=== PATIENT | female | born 1970 | race Two or more races ===

== ENCOUNTER 2019-05-08 17:22 | Inpatient (IN) | payer OTHER ==
[~2019-05-08] VITALS: Ht 170.2 cm; Wt 79.0 kg
[2019-05-08] MEDS ORDERED: HEPARIN 25,000 UNITS/500ML PMX 500 ML ONE (17:47)
--- NOTE | 2019-05-08 17:54 | NUR ---
BIB EMS TRANSFER FROM [facility] FOR BILATERAL PE. PT HAS HAD SOB, CP FOR 10 DAYS. RECENTLY MOVED FROM [place] TO [facility]. PT STATES SHE IS UNABLE TO AMBULATED FAR W OUT SOB. FAMILY HX OF MOM DYING FROM PE AT AGE 42. PT ON [employer]ICE, PULSE OX, 2 L O2. VS STABLE. PT NOT IN ANY DISTRESS, A&OX4. AT BEDSIDE DISCUSSING POC.
[2019-05-08] MEDS ORDERED: LISI-170 PO (18:15)
[2019-05-08] MEDS ORDERED: CITA40TA12 PO (18:15)
--- NOTE | 2019-05-08 18:30 | NUR ---
RN EDUCATED PT ABOUT LAB VALUES AND POC THAT LAB WILL BE DRAWN EVERY SIX HOURS TO APPROPIATLY DOSE HEP GTT. PT UNDERSTANDS. NO NEEDS AT THIS TIME
[2019-05-08] MEDS ORDERED: POLYETHYLENE GLYCOL 17 GM PACKET PO PRN (19:00)
[2019-05-08] MEDS ORDERED: BISACODYL 10 MG SUPP PR PRN (19:00)
[2019-05-08] MEDS ORDERED: HEPARIN 5,000 UNITS/ML, 1ML ONE (19:22)
[2019-05-08] MEDS ORDERED: HEPARIN 5,000 UNITS/ML, 1ML IV ONE (19:30)
--- NOTE | 2019-05-08 19:30 | NUR ---
HEP GTT STARTED @800U/HR. VERIFIED W PHARMACY
[2019-05-08 19:32] LABS: TROPONIN I 0.068 ng/mL (0.000-0.045)
--- NOTE | 2019-05-08 19:42 | NUR ---
TASK RN: VERIFIED HEPARIN DRIP AND BOLUS WITH PRIMARY RN.
[2019-05-08] MEDS ORDERED: GUAIFENESIN/DM 200-20MG, 10ML UDC PO PRN (20:00)
[2019-05-08] MEDS ORDERED: ONDANSETRON ODT 4 MG PO PRN (20:00)
[2019-05-08] MEDS: SODIUM CHLORIDE FLUSH 10ML SYR IVF SCH (21:00)
[2019-05-08 21:05] VITALS: BP 112/78
[2019-05-09 01:23] LABS: TROPONIN I 0.061 ng/mL (0.000-0.045)
[2019-05-09] MEDS: HEPARIN 5,000 UNITS/ML, 1ML IV PRN ×4 (02:52→22:49)
[2019-05-09 03:36] VITALS: BP 119/81
[2019-05-09 05:21] LABS: CHLORIDE 105 mmol/L (98-107)
[2019-05-09 05:22] LABS: BASOPHILS # (AUTO) 0.03 x10^3/uL (0-0.1); BASOPHILS % (AUTO) 0 % (0-1); EOSINOPHILS # (AUTO) 0.13 x10^3/uL (0-0.4); EOSINOPHILS % (AUTO) 2 % (1-7); LYMPHOCYTES # (AUTO) 1.87 x10^3/uL (1-3.4); LYMPHOCYTES % (AUTO) 26 % (22-44); MD NO; MEAN CORPUSCULAR HEMOGLOBIN 31.6 pg (27.0-34.8); MEAN CORPUSCULAR HGB CONC 32.7 g/dL (32.4-35.8); MEAN CORPUSCULAR VOLUME 96.7 fL (80-100); MEAN PLATELET VOLUME 8.9 fL (7.4-10.4); MONOCYTES # (AUTO) 0.56 x10^3/uL (0.2-0.8); MONOCYTES % (AUTO) 8 % (2-9); NEUTROPHILS # (AUTO) 4.53 x10^3/uL (1.8-6.8); NEUTROPHILS % (AUTO) 64 % (42-75); PLATELET COUNT 159 x10^3/uL (130-400); RED BLOOD COUNT 4.27 x10^6/uL (3.82-5.3); RED CELL DISTRIBUTION WIDTH 13.2 % (9.6-15.2)
[2019-05-09 05:28] LABS: ALANINE AMINOTRANSFERASE 40 U/L (12-78); ALBUMIN 3.1 g/dL (3.4-5.0); ALKALINE PHOSPHATASE 94 U/L (45-117); ANION GAP 10 mmol/L (5-15); BILIRUBIN,TOTAL 0.7 mg/dL (0.2-1.0); CALCIUM 8.3 mg/dL (8.5-10.1); CREATININE 0.64 mg/dL (0.55-1.02); TOTAL PROTEIN 6.8 g/dL (6.4-8.2)
[2019-05-09 08:07] VITALS: BP 114/71
[2019-05-09 08:27] LABS: TROPONIN I 0.041 ng/mL (0.000-0.045)
[2019-05-09] MEDS: SODIUM CHLORIDE FLUSH 10ML SYR IVF SCH ×2 (09:00→20:10)
[2019-05-09] MEDS: SENNA/DOCUSATE TABLET PO SCH (09:00)
[2019-05-09] MEDS ORDERED: LISINOPRIL 20 MG TABLET PO SCH (09:00)
[2019-05-09] MEDS ORDERED: CITALOPRAM 20 MG TABLET PO SCH (09:00)
[2019-05-09] MEDS: ACETAMINOPHEN 325 MG TABLET PO PRN ×2 (09:51→14:28)
[2019-05-09] MEDS ORDERED: METHOCARBAMOL 500 MG TABLET ONE (10:06)
[2019-05-09] MEDS ORDERED: MORPHINE SULFATE 4 MG/ML, 1ML ONE (10:07)
[2019-05-09] MEDS: METHOCARBAMOL 500 MG TABLET PO PRN ×3 (10:10→22:25)
[2019-05-09] MEDS ORDERED: MORPHINE SULFATE 4 MG/ML, 1ML IVPush SCH (10:30)
[2019-05-09 14:32] VITALS: BP 120/85
[2019-05-09] MEDS: HYDROcodone/APAP 5/325 TABLET PO PRN ×2 (18:32→22:25)
[2019-05-09 19:39] VITALS: BP 119/81
[2019-05-09] MEDS: CITALOPRAM 20 MG TABLET PO SCH (20:10)
[2019-05-09] MEDS: HEPARIN 25,000 UNITS/500ML PMX 500 ML IV PRN (22:22)
[2019-05-10 01:22] VITALS: BP 114/81
[2019-05-10 05:33] LABS: BASOPHILS # (AUTO) 0.02 x10^3/uL (0-0.1); BASOPHILS % (AUTO) 0 % (0-1); EOSINOPHILS # (AUTO) 0.13 x10^3/uL (0-0.4); EOSINOPHILS % (AUTO) 2 % (1-7); LYMPHOCYTES # (AUTO) 1.76 x10^3/uL (1-3.4); LYMPHOCYTES % (AUTO) 29 % (22-44); MD NO; MEAN CORPUSCULAR HGB CONC 32.9 g/dL (32.4-35.8); MEAN PLATELET VOLUME 8.9 fL (7.4-10.4); MONOCYTES # (AUTO) 0.54 x10^3/uL (0.2-0.8); MONOCYTES % (AUTO) 9 % (2-9); NEUTROPHILS # (AUTO) 3.58 x10^3/uL (1.8-6.8); NEUTROPHILS % (AUTO) 59 % (42-75); PLATELET COUNT 181 x10^3/uL (130-400); RED BLOOD COUNT 4.08 x10^6/uL (3.82-5.3); RED CELL DISTRIBUTION WIDTH 13.3 % (9.6-15.2)
[2019-05-10 05:44] LABS: CALCIUM 8.6 mg/dL (8.5-10.1); CHLORIDE 105 mmol/L (98-107)
[2019-05-10 05:50] LABS: ALANINE AMINOTRANSFERASE 64 U/L (12-78); ALBUMIN 3.1 g/dL (3.4-5.0); ALKALINE PHOSPHATASE 97 U/L (45-117); ANION GAP 7 mmol/L (5-15); BILIRUBIN,TOTAL 0.5 mg/dL (0.2-1.0); CREATININE 0.76 mg/dL (0.55-1.02); TOTAL PROTEIN 6.9 g/dL (6.4-8.2)
[2019-05-10] MEDS: HEPARIN 5,000 UNITS/ML, 1ML IV PRN ×2 (05:53→17:55)
[2019-05-10 07:06] VITALS: BP 113/77
[2019-05-10] MEDS: SENNA/DOCUSATE TABLET PO SCH (09:00)
[2019-05-10] MEDS: SODIUM CHLORIDE FLUSH 10ML SYR IVF SCH ×2 (10:31→21:02)
[2019-05-10 14:11] VITALS: BP 119/85
[2019-05-10] MEDS: METHOCARBAMOL 500 MG TABLET PO PRN (16:48)
[2019-05-10] MEDS: HEPARIN 25,000 UNITS/500ML PMX 500 ML IV PRN (16:49)
[2019-05-10 19:25] VITALS: BP 121/84
[2019-05-10] MEDS: CITALOPRAM 20 MG TABLET PO SCH (21:00)
[2019-05-10] MEDS: HYDROcodone/APAP 5/325 TABLET PO PRN (21:03)
[2019-05-11 00:31] VITALS: BP 103/66
[2019-05-11 06:45] VITALS: BP 109/75
[2019-05-11 07:23] LABS: BASOPHILS # (AUTO) 0.02 x10^3/uL (0-0.1); BASOPHILS % (AUTO) 0 % (0-1); EOSINOPHILS # (AUTO) 0.06 x10^3/uL (0-0.4); EOSINOPHILS % (AUTO) 1 % (1-7); LYMPHOCYTES % (AUTO) 26 % (22-44); MD NO; MEAN CORPUSCULAR HEMOGLOBIN 31.8 pg (27.0-34.8); MEAN CORPUSCULAR HGB CONC 33.8 g/dL (32.4-35.8); MEAN CORPUSCULAR VOLUME 94.3 fL (80-100); MEAN PLATELET VOLUME 8.2 fL (7.4-10.4); MONOCYTES # (AUTO) 0.41 x10^3/uL (0.2-0.8); MONOCYTES % (AUTO) 8 % (2-9); NEUTROPHILS # (AUTO) 3.15 x10^3/uL (1.8-6.8); NEUTROPHILS % (AUTO) 64 % (42-75); PLATELET COUNT 213 x10^3/uL (130-400); RED BLOOD COUNT 4.07 x10^6/uL (3.82-5.3)
[2019-05-11 07:39] LABS: ANION GAP 7 mmol/L (5-15); CHLORIDE 104 mmol/L (98-107); CREATININE 0.77 mg/dL (0.55-1.02)
[2019-05-11] MEDS: SODIUM CHLORIDE FLUSH 10ML SYR IVF SCH ×2 (09:17→20:46)
[2019-05-11] MEDS: SENNA/DOCUSATE TABLET PO SCH (09:18)
[2019-05-11] MEDS: HEPARIN 25,000 UNITS/500ML PMX 500 ML IV PRN (10:58)
[2019-05-11 13:11] VITALS: BP 121/78
[2019-05-11] MEDS: HYDROcodone/APAP 5/325 TABLET PO PRN (15:39)
[2019-05-11 18:36] VITALS: BP 106/72
[2019-05-11] MEDS: METHOCARBAMOL 500 MG TABLET PO PRN (20:46)
[2019-05-11] MEDS: CITALOPRAM 20 MG TABLET PO SCH ×2 (20:46→20:49)
[2019-05-12 00:36] VITALS: BP 110/77
[2019-05-12] MEDS: HEPARIN 25,000 UNITS/500ML PMX 500 ML IV PRN ×2 (03:14→18:41)
[2019-05-12] MEDS: HYDROcodone/APAP 5/325 TABLET PO PRN ×2 (03:29→20:33)
[2019-05-12 05:32] LABS: BASOPHILS # (AUTO) 0.02 x10^3/uL (0-0.1); BASOPHILS % (AUTO) 0 % (0-1); EOSINOPHILS # (AUTO) 0.15 x10^3/uL (0-0.4); EOSINOPHILS % (AUTO) 3 % (1-7); LYMPHOCYTES # (AUTO) 1.28 x10^3/uL (1-3.4); LYMPHOCYTES % (AUTO) 25 % (22-44); MD NO; MEAN CORPUSCULAR HGB CONC 33.2 g/dL (32.4-35.8); MEAN CORPUSCULAR VOLUME 96.4 fL (80-100); MEAN PLATELET VOLUME 8.7 fL (7.4-10.4); MONOCYTES # (AUTO) 0.41 x10^3/uL (0.2-0.8); MONOCYTES % (AUTO) 8 % (2-9); NEUTROPHILS # (AUTO) 3.32 x10^3/uL (1.8-6.8); NEUTROPHILS % (AUTO) 64 % (42-75); PLATELET COUNT 241 x10^3/uL (130-400); RED BLOOD COUNT 3.95 x10^6/uL (3.82-5.3)
[2019-05-12] MEDS: HEPARIN 5,000 UNITS/ML, 1ML IV PRN (06:38)
[2019-05-12 09:21] VITALS: BP 115/81
[2019-05-12] MEDS: SODIUM CHLORIDE FLUSH 10ML SYR IVF SCH ×2 (09:23→20:26)
[2019-05-12] MEDS: SENNA/DOCUSATE TABLET PO SCH ×2 (11:00→13:46)
[2019-05-12 12:37] LABS: INTERNATIONAL NORMALIZED RATIO 1.02 (0.93-1.1); PROTHROMBIN TIME 10.7 Seconds (9.6-11.5)
[2019-05-12 15:55] VITALS: BP 126/89
[2019-05-12] MEDS ORDERED: WARFARIN 7.5 MG TABLET PO-COUM ONE (18:00)
[2019-05-12 18:23] VITALS: BP 130/88
[2019-05-12] MEDS: CITALOPRAM 20 MG TABLET PO SCH (20:26)
[2019-05-12 21:17] VITALS: BP 164/101
[2019-05-13 00:29] VITALS: BP 109/74
[2019-05-13 06:19] LABS: INTERNATIONAL NORMALIZED RATIO 1.04 (0.93-1.1); PROTHROMBIN TIME 10.9 Seconds (9.6-11.5)
[2019-05-13 06:45] VITALS: BP 113/80
[2019-05-13] MEDS: SENNA/DOCUSATE TABLET PO SCH (09:00)
[2019-05-13] MEDS: SODIUM CHLORIDE FLUSH 10ML SYR IVF SCH ×2 (10:04→20:42)
[2019-05-13] MEDS: HEPARIN 25,000 UNITS/500ML PMX 500 ML IV PRN (11:59)
[2019-05-13] MEDS: HYDROcodone/APAP 5/325 TABLET PO PRN ×2 (12:04→20:41)
[2019-05-13 12:42] VITALS: BP 127/86
[2019-05-13] MEDS ORDERED: WARFARIN 7.5 MG TABLET PO-COUM ONE (18:00)
[2019-05-13] MEDS: CITALOPRAM 20 MG TABLET PO SCH ×2 (20:41→20:46)
[2019-05-13 20:58] VITALS: BP 126/90
[2019-05-14 02:12] VITALS: BP 110/75
[2019-05-14] MEDS: HEPARIN 25,000 UNITS/500ML PMX 500 ML IV PRN ×2 (04:46→19:46)
[2019-05-14 05:16] LABS: BASOPHILS # (AUTO) 0.02 x10^3/uL (0-0.1); BASOPHILS % (AUTO) 0 % (0-1); EOSINOPHILS # (AUTO) 0.13 x10^3/uL (0-0.4); EOSINOPHILS % (AUTO) 3 % (1-7); LYMPHOCYTES # (AUTO) 1.82 x10^3/uL (1-3.4); LYMPHOCYTES % (AUTO) 41 % (22-44); MD NO; MEAN CORPUSCULAR HEMOGLOBIN 31.9 pg (27.0-34.8); MEAN CORPUSCULAR VOLUME 96.5 fL (80-100); MEAN PLATELET VOLUME 8.2 fL (7.4-10.4); MONOCYTES # (AUTO) 0.34 x10^3/uL (0.2-0.8); MONOCYTES % (AUTO) 8 % (2-9); NEUTROPHILS # (AUTO) 2.11 x10^3/uL (1.8-6.8); NEUTROPHILS % (AUTO) 48 % (42-75); PLATELET COUNT 248 x10^3/uL (130-400); RED BLOOD COUNT 3.92 x10^6/uL (3.82-5.3); RED CELL DISTRIBUTION WIDTH 12.6 % (9.6-15.2)
[2019-05-14 05:20] LABS: INTERNATIONAL NORMALIZED RATIO 1.31 (0.93-1.1); PROTHROMBIN TIME 13.6 Seconds (9.6-11.5)
[2019-05-14 05:25] LABS: ANION GAP 6 mmol/L (5-15); CALCIUM 8.8 mg/dL (8.5-10.1); CHLORIDE 106 mmol/L (98-107)
[2019-05-14 05:27] LABS: CREATININE 0.76 mg/dL (0.55-1.02)
[2019-05-14 06:52] VITALS: BP 93/65
[2019-05-14] MEDS: SODIUM CHLORIDE FLUSH 10ML SYR IVF SCH ×2 (09:00→19:48)
[2019-05-14] MEDS: SENNA/DOCUSATE TABLET PO SCH (09:00)
[2019-05-14] MEDS: WARFARIN MODERAT DOSE PROTOCOL XX SCH (12:00)
[2019-05-14 14:59] VITALS: BP 105/72
[2019-05-14] MEDS ORDERED: WARFARIN 7.5 MG TABLET PO-COUM SCH (18:00)
[2019-05-14] MEDS: CITALOPRAM 20 MG TABLET PO SCH (19:47)
[2019-05-14 19:49] VITALS: BP 115/81
[2019-05-14] MEDS: HYDROcodone/APAP 5/325 TABLET PO PRN (20:10)
[2019-05-15 00:52] VITALS: BP 118/84
[2019-05-15 05:24] LABS: INTERNATIONAL NORMALIZED RATIO 1.6 (0.93-1.1); PROTHROMBIN TIME 16.5 Seconds (9.6-11.5)
[2019-05-15 07:34] VITALS: BP 116/79
[2019-05-15] MEDS: SENNA/DOCUSATE TABLET PO SCH (08:24)
[2019-05-15] MEDS: SODIUM CHLORIDE FLUSH 10ML SYR IVF SCH ×2 (08:24→20:01)
[2019-05-15] MEDS: WARFARIN MODERAT DOSE PROTOCOL XX SCH (12:00)
[2019-05-15 12:33] VITALS: BP 109/62
[2019-05-15] MEDS: HEPARIN 25,000 UNITS/500ML PMX 500 ML IV PRN (13:06)
[2019-05-15] MEDS: HYDROcodone/APAP 5/325 TABLET PO PRN (14:43)
[2019-05-15] MEDS ORDERED: WARFARIN 7.5 MG TABLET PO-COUM SCH (18:00)
[2019-05-15] MEDS: CITALOPRAM 20 MG TABLET PO SCH (20:00)
[2019-05-15 20:34] VITALS: BP 103/71
[2019-05-16 00:38] VITALS: BP 114/81
[2019-05-16] MEDS: HEPARIN 25,000 UNITS/500ML PMX 500 ML IV PRN ×2 (05:06→19:50)
[2019-05-16 05:32] LABS: INTERNATIONAL NORMALIZED RATIO 1.82 (0.93-1.1); PROTHROMBIN TIME 18.7 Seconds (9.6-11.5)
[2019-05-16 06:48] VITALS: BP 110/75
[2019-05-16] MEDS: WARFARIN MODERAT DOSE PROTOCOL XX SCH (07:27)
[2019-05-16] MEDS: SODIUM CHLORIDE FLUSH 10ML SYR IVF SCH ×2 (07:30→19:39)
[2019-05-16] MEDS: SENNA/DOCUSATE TABLET PO SCH (09:00)
[2019-05-16] MEDS: HYDROcodone/APAP 5/325 TABLET PO PRN (13:17)
[2019-05-16 13:20] VITALS: BP 123/86
[2019-05-16] MEDS ORDERED: WARFARIN 7.5 MG TABLET PO-COUM ONE (15:44)
[2019-05-16] MEDS: METHOCARBAMOL 500 MG TABLET PO PRN (15:46)
[2019-05-16] MEDS ORDERED: WARFARIN 7.5 MG TABLET PO-COUM SCH (18:00)
[2019-05-16] MEDS: CITALOPRAM 20 MG TABLET PO SCH (19:39)
[2019-05-16 19:40] VITALS: BP 122/85
[2019-05-16] MEDS: TEMAZEPAM 15 MG CAPSULE PO PRN (23:48)
[2019-05-17 02:16] VITALS: BP 127/87
[2019-05-17 05:32] LABS: INTERNATIONAL NORMALIZED RATIO 2.1 (0.93-1.1); PROTHROMBIN TIME 21.4 Seconds (9.6-11.5)
[2019-05-17 05:37] LABS: ANION GAP 6 mmol/L (5-15); CALCIUM 9.3 mg/dL (8.5-10.1); CHLORIDE 105 mmol/L (98-107)
[2019-05-17 05:38] LABS: CREATININE 0.98 mg/dL (0.55-1.02)
[2019-05-17 06:21] LABS: BASOPHILS # (AUTO) 0.02 x10^3/uL (0-0.1); BASOPHILS % (AUTO) 0 % (0-1); EOSINOPHILS # (AUTO) 0.12 x10^3/uL (0-0.4); EOSINOPHILS % (AUTO) 3 % (1-7); LYMPHOCYTES # (AUTO) 1.79 x10^3/uL (1-3.4); LYMPHOCYTES % (AUTO) 36 % (22-44); MD NO; MEAN CORPUSCULAR HEMOGLOBIN 31.7 pg (27.0-34.8); MEAN CORPUSCULAR HGB CONC 33.6 g/dL (32.4-35.8); MEAN CORPUSCULAR VOLUME 94.2 fL (80-100); MEAN PLATELET VOLUME 7.9 fL (7.4-10.4); MONOCYTES # (AUTO) 0.38 x10^3/uL (0.2-0.8); MONOCYTES % (AUTO) 8 % (2-9); NEUTROPHILS # (AUTO) 2.68 x10^3/uL (1.8-6.8); NEUTROPHILS % (AUTO) 54 % (42-75); PLATELET COUNT 224 x10^3/uL (130-400); RED BLOOD COUNT 4.32 x10^6/uL (3.82-5.3); RED CELL DISTRIBUTION WIDTH 13.1 % (9.6-15.2)
[2019-05-17 07:10] VITALS: BP 113/76
[2019-05-17] MEDS: SODIUM CHLORIDE FLUSH 10ML SYR IVF SCH ×2 (08:40→20:16)
[2019-05-17] MEDS: SENNA/DOCUSATE TABLET PO SCH (09:20)
[2019-05-17] MEDS: WARFARIN MODERAT DOSE PROTOCOL XX SCH (12:09)
[2019-05-17] MEDS: HEPARIN 25,000 UNITS/500ML PMX 500 ML IV PRN (14:37)
[2019-05-17 15:59] VITALS: BP 112/80
[2019-05-17] MEDS ORDERED: WARFARIN 3 MG TABLET PO-COUM SCH (18:00)
[2019-05-17 18:51] VITALS: BP 129/88
[2019-05-17] MEDS: CITALOPRAM 20 MG TABLET PO SCH (20:16)
[2019-05-17] MEDS: TEMAZEPAM 15 MG CAPSULE PO PRN (22:29)
[2019-05-18 02:37] VITALS: BP 112/80
[2019-05-18 05:04] LABS: BASOPHILS # (AUTO) 0.03 x10^3/uL (0-0.1); BASOPHILS % (AUTO) 1 % (0-1); EOSINOPHILS % (AUTO) 2 % (1-7); LYMPHOCYTES # (AUTO) 1.79 x10^3/uL (1-3.4); LYMPHOCYTES % (AUTO) 37 % (22-44); MD NO; MEAN CORPUSCULAR HEMOGLOBIN 31.5 pg (27.0-34.8); MEAN CORPUSCULAR HGB CONC 33.5 g/dL (32.4-35.8); MEAN CORPUSCULAR VOLUME 94.1 fL (80-100); MEAN PLATELET VOLUME 7.8 fL (7.4-10.4); MONOCYTES # (AUTO) 0.46 x10^3/uL (0.2-0.8); MONOCYTES % (AUTO) 10 % (2-9); NEUTROPHILS # (AUTO) 2.46 x10^3/uL (1.8-6.8); NEUTROPHILS % (AUTO) 51 % (42-75); PLATELET COUNT 199 x10^3/uL (130-400); RED BLOOD COUNT 4.31 x10^6/uL (3.82-5.3); RED CELL DISTRIBUTION WIDTH 13.2 % (9.6-15.2)
[2019-05-18 05:09] LABS: INTERNATIONAL NORMALIZED RATIO 2.24 (0.93-1.1); PROTHROMBIN TIME 22.8 Seconds (9.6-11.5)
[2019-05-18 05:14] LABS: ANION GAP 5 mmol/L (5-15); CALCIUM 9.3 mg/dL (8.5-10.1); CHLORIDE 105 mmol/L (98-107)
[2019-05-18 05:17] LABS: CREATININE 0.89 mg/dL (0.55-1.02)
[2019-05-18] MEDS: HEPARIN 25,000 UNITS/500ML PMX 500 ML IV PRN (06:17)
[2019-05-18 06:38] VITALS: BP 125/89
[2019-05-18] MEDS: SENNA/DOCUSATE TABLET PO SCH (10:08)
[2019-05-18] MEDS: SODIUM CHLORIDE FLUSH 10ML SYR IVF SCH (10:08)
[2019-05-18] MEDS ORDERED: WARF6TAB PO (11:43)
[2019-05-18] MEDS: WARFARIN MODERAT DOSE PROTOCOL XX SCH (12:06)
[2019-05-18 12:09] VITALS: BP 128/85
[2019-05-18] MEDS ORDERED: WARFARIN 7.5 MG TABLET PO-COUM ONE (18:00)
[2019-05-18] MEDS ORDERED: WARFARIN 3 MG TABLET PO-COUM ONE (18:00)
== END 2019-05-18 19:29 | disposition home or self-care (01) | DRG 252 ==
LOC: ED 17:57 → EDIP 17:58 → ED 18:05 → 5SO 19:59
PROVIDERS: ADMIT Family Medicine; ATTEND Internal Medicine
PROC: 06H03DZ Insertion of Intraluminal Device into Inferior Vena Cava, Percutaneous Approach (ICD-10-PCS; principal; 2019-05-09)
DX: I82.403 Acute embolism and thrombosis of unspecified deep veins of lower extremity, bilateral (principal); I26.09 Other pulmonary embolism with acute cor pulmonale; D68.59 Other primary thrombophilia; I24.8 Other forms of acute ischemic heart disease; E87.70 Fluid overload, unspecified; F32.9 Major depressive disorder, single episode, unspecified; M79.10 Myalgia, unspecified site; R79.89 Other specified abnormal findings of blood chemistry; I10 Essential (primary) hypertension; Z79.899 Other long term (current) drug therapy; Z88.0 Allergy status to penicillin
CPT/HCPCS: 36415; 80048; 80053; 83735; 84100; 84484; 85025; 85520; 85610; 93306; 93970; 99285; G0378; J1644; J2270